=== PATIENT | female | born 1955 | race Caucasian/White ===

== ENCOUNTER 2024-07-02 16:16 | Emergency (ER) | payer OTHER ==
[~2024-07-02] VITALS: Ht 160 cm; Wt 61.2 kg
[2024-07-02] MEDS ORDERED: MetroNIDAZOLE 500 MG Tab PO ONE (18:15)
[2024-07-02] MEDS ORDERED: LevoFLOXacin 750 MG Tab PO ONE (18:20)
[2024-07-02] MEDS ORDERED: Rabies Vaccine (Pcec)/Pf 1 mL 2.5 Unit Kit IM ONE (18:20)
[2024-07-02] MEDS ORDERED: Rabies Immune Globulin 150 IU / ML 2ML Vial IM ONE (18:20)
[2024-07-02] MEDS ORDERED: Diphth,Pertuss(Acell),Tet Vac 0.5 ML VIAL IM ONE (18:20)
[2024-07-02] MEDS ORDERED: RABIES IMMUNE GLOBULIN 300 UNIT/ML IM ONE (18:30)
[2024-07-02] MEDS ORDERED: [UNRECOGNIZED DRUG - OTHER] IM ONE (18:30)
[2024-07-02] MEDS ORDERED: Rabies Immune Globulin/Pf 300 Unit/ML 1ML Vial IM ONE (18:40)
[2024-07-02] MEDS ORDERED: MOXI400 PO (19:47)
== END 2024-07-02 19:54 | disposition home or self-care (01) ==
LOC: ER 16:16
DX: S61.452A Open bite of left hand, initial encounter (principal); E11.9 Type 2 diabetes mellitus without complications; Z95.5 Presence of coronary angioplasty implant and graft; Z88.0 Allergy status to penicillin; Z88.2 Allergy status to sulfonamides; Z88.6 Allergy status to analgesic agent; Z88.1 Allergy status to other antibiotic agents; Z88.5 Allergy status to narcotic agent; W55.01XA Bitten by cat, initial encounter
CPT/HCPCS: 90375; 90376; 90471; 90472; 90715; 99283-25; A9270

== ENCOUNTER 2024-07-05 13:31 | Emergency (ER) | payer OTHER ==
[~2024-07-05] VITALS: Ht 160 cm; Wt 61.2 kg
[~2024-07-05 13:31] MED LIST: MOXI400 PO
[2024-07-05] MEDS ORDERED: Rabies Vaccine (Pcec)/Pf 1 mL 2.5 Unit Kit IM ONE (14:10)
== END 2024-07-05 14:31 | disposition home or self-care (01) ==
LOC: ER 13:31
DX: Z23 Encounter for immunization (principal); E11.9 Type 2 diabetes mellitus without complications; Z88.0 Allergy status to penicillin; Z88.2 Allergy status to sulfonamides; Z88.1 Allergy status to other antibiotic agents; Z88.5 Allergy status to narcotic agent; Z88.8 Allergy status to other drugs, medicaments and biological substances
CPT/HCPCS: 90471

== ENCOUNTER 2024-07-09 12:47 | Emergency (ER) | payer OTHER ==
[~2024-07-09] VITALS: Ht 160 cm; Wt 60.8 kg
[2024-07-09] MEDS ORDERED: Rabies Vaccine (Pcec)/Pf 1 mL 2.5 Unit Kit IM ONE (13:00)
== END 2024-07-09 13:18 | disposition home or self-care (01) ==
LOC: ER 12:47
DX: Z29.14 Encounter for prophylactic rabies immune globulin (principal); E11.9 Type 2 diabetes mellitus without complications; Z88.0 Allergy status to penicillin; Z88.2 Allergy status to sulfonamides; Z88.1 Allergy status to other antibiotic agents; Z88.5 Allergy status to narcotic agent; Z79.899 Other long term (current) drug therapy; Z95.5 Presence of coronary angioplasty implant and graft
CPT/HCPCS: 90471

== ENCOUNTER 2024-07-16 14:55 | Emergency (ER) | payer OTHER ==
[~2024-07-16] VITALS: Ht 165.1 cm; Wt 60.3 kg
[2024-07-16] MEDS ORDERED: Rabies Vaccine (Pcec)/Pf 1 mL 2.5 Unit Kit IM ONE (15:05)
== END 2024-07-16 16:12 | disposition home or self-care (01) ==
LOC: ER 14:55
DX: Z23 Encounter for immunization (principal); Z20.3 Contact with and (suspected) exposure to rabies
CPT/HCPCS: 90471